=== PATIENT | female | born 1995 | race Caucasian/White ===

== ENCOUNTER 2019-10-15 10:52 | Outpatient (CLI) | payer BC, SELFPAY ==
--- NOTE | ~2019-10-15 | US_ITS ---
EXAMINATION: US OB <=14 wk fetus w TV DATE: 10/15/2019 11:35 INDICATION: First trimester dating TECHNIQUE: Real-time pelvic transabdominal and transvaginal ultrasound was performed. COMPARISON: None. FINDINGS: The uterus measures 9.0 x 5.5 x 5.8 cm. There is an intrauterine gestational sac. A yolk s ac is identified. The pole was not identified. The mean gestational sac diameter is 1.4 cm , wh ich correlates with an estimated gestational age of 61 weeks and 0 day(s) (+/-) 4 day(s). The right ovary measures 2.9 x 2.4 x 2.3 cm. The left ovary measures 2.8 x 2.4 x 1.8 cm. There is tra ce free fluid in the pelvis. IMPRESSION: 1. Intrauterine gestational sac and yolk sac without pole identified which may be due to early . Estimated gestational age is 6 weeks and 1 day(s) (+/-) 4 day(s) and an estimated delivery date of 06/08/2020 based on mean sac diameter. Reviewed, dictated and finalized at location A. IMPRESSION: 1. Intrauterine gestational sac and yolk sac without pole identified whic h may be due to early . Estimated gestational age is 6 weeks and 1 day (s) (+/-) 4 day(s) and an estimated delivery date of 06/08/2020 based on mean sa c diameter.
== END 2019-10-15 10:53 | disposition home or self-care (01) ==
PROVIDERS: Visit Provider Obstetrics & Gynecology Gynecology
DX: O26.21 Pregnancy care for patient with recurrent pregnancy loss, first trimester (principal); Z36.87 Encounter for antenatal screening for uncertain dates
CPT/HCPCS: 76801; 76817

== ENCOUNTER 2019-10-23 12:50 | Outpatient (CLI) | payer BC, SELFPAY ==
--- NOTE | ~2019-10-23 | US_ITS ---
EXAMINATION: US OB <= 14 weeks fetus DATE: 10/23/2019 13:31 INDICATION: Assess viability during first trimester . TECHNIQUE: Real-time pelvic ultrasound utilizing both a transvaginal and transabdominal probe was pe rformed. The interpreting radiologist was not present for the study. COMPARISON: None. FINDINGS: The uterus measures 10.6 x 6.6 x 5.6 cm. There is an intrauterine gestational sac. A yolk sac and fe taras pole are identified. The crown rump length measures 1.1 cm, which correlates with an estimated ge stational age of 7 weeks and 2 days. heart motion is identified measuring 142 beats per minute (bpm) by M-mode Doppler. 2.5 x 0.4 x 0.6 cm subchorionic hematoma along the fundal side of the gestat ional sac. The ovaries are not visualized. There is no free fluid in the pelvis. IMPRESSION: 1. Single living fetus with heart rate of 142 bpm. 2. Gestational age by ultrasound of 7 weeks 2 day(s) +/- 5 day(s) with ultrasound estimated date of delivery ([facility]IGUELIT[facility]) of 06/08/2020. 3. Small subchorionic hematoma. Reviewed, dictated and finalized at location A. IMPRESSION: 1. Single living fetus with heart rate of 142 bpm. 2. Gestational age by ultrasound of 7 weeks 2 day(s) +/- 5 day(s) with ultraso und estimated date of delivery ([facility]) of 06/08/2020. 3. Small subchorionic hematoma.
== END 2019-10-23 12:51 | disposition home or self-care (01) ==
PROVIDERS: Visit Provider Obstetrics & Gynecology Gynecology
DX: O36.80X0 Pregnancy with inconclusive fetal viability, not applicable or unspecified (principal); Z3A.01 Less than 8 weeks gestation of pregnancy; O36.8911 Maternal care for other specified fetal problems, first trimester, fetus 1
CPT/HCPCS: 76801

== ENCOUNTER 2019-11-07 09:58 | Outpatient (CLI) | payer BC, SELFPAY ==
--- NOTE | ~2019-11-07 | US_ITS ---
EXAMINATION: US OB <= 14 weeks fetus DATE: 11/07/2019 10:38 INDICATION: Subchorionic hematoma. TECHNIQUE: Real-time pelvic ultrasound utilizing both a transvaginal and transabdominal probe was pe rformed. The interpreting radiologist was not present for the study. COMPARISON: None. FINDINGS: The uterus measures 12.8 x 7.8 x 6.2 cm. There is an intrauterine gestational sac. A yolk sac and fe taras pole are identified. The crown rump length measures 2.7 cm, which is concordant with previously e stimated gestational age of 9 weeks and 3 days. heart motion is identified measuring 157 beats per minute (bpm) by M-mode Doppler.Decrease in size of a now tiny 9 x 5 x 2 mm subchorionic hematoma along the right fundal side of the gestational sac. The ovaries are not visualized. There is no free fluid in the pelvis. IMPRESSION: 1. Single living fetus with heart rate of 157 bpm. 2. [place]-rump length of 2.7 cm concordant with previously estimated age by ultrasound of 9 weeks 3 da ys with ultrasound estimated date of delivery ([facility]) of 06/08/2020. 3. Decrease in size of a now tiny 9 x 5 x 3 mm subchorionic hematoma. Reviewed, dictated and finalized at location A. IMPRESSION: 1. Single living fetus with heart rate of 157 bpm. 2. [place]-rump length of 2.7 cm concordant with previously estimated age by ultr asound of 9 weeks 3 days with ultrasound estimated date of delivery ([facility]IGUELITO) of . 3. Decrease in size of a now tiny 9 x 5 x 3 mm subchorionic hematoma.
== END 2019-11-07 09:59 | disposition home or self-care (01) ==
PROVIDERS: Visit Provider Obstetrics & Gynecology Gynecology
DX: O36.8910 Maternal care for other specified fetal problems, first trimester, not applicable or unspecified (principal); Z3A.09 9 weeks gestation of pregnancy
CPT/HCPCS: 76801

== ENCOUNTER → 2020-01-22 11:10 | Outpatient (CLI) | payer BC, SELFPAY ==
--- NOTE | ~2020-01-22 | US_ITS ---
US OB >= 14 weeks Fetus DATE: 01/22/2020 12:28 INDICATION: anatomy assessment TECHNIQUE: Real-time and color flow imaging and Doppler analysis. COMPARISON: 11/07/2019 obstetrical ultrasound FINDINGS: Live romero intrauterine gestation, fetus in vertex presentation, longitudinal lie. The placenta is posterior. The lower placental margin is 5.4 cm above the cervix. Subjectively normal amount of amniotic fluid. No evidence of cerebral ventriculomegaly. cerebellum and nuchal fold appear normal. The f etal spine appears intact on transverse and longitudinal views. The diaphragm is intact. 4 bar dominick heart. The kidneys are unremarkable, without hydronephrosis. Fluid is demonstrated in the stomach and urinary bladder. Three-vessel umbilical cord with normal insertion at fe taras abdominal wall. heart rate of 148 bpm. Biparietal diameter 4.80 cm; 20 weeks 4 days estimated gestational age Head circumference 18.0 cm; 20 weeks 3 days Abdominal circumference 15.39 cm; 20 weeks 4 days Femur length 3.21 cm; 20 weeks Composite age by Hadlock formula is 20 weeks 3 days +/- 1 week 3 days; MIGUELIT[facility] by ultrasound is 06/07/2020 compared to 06/08/2020 by LMP. Estimated weight is 347 +/- 52 g. HC/AC 1.17, within normal range of 1.07, 101.25 Femur length/head circumference 17.82, within normal range of 16.41-20.01 IMPRESSION: Normal anatomy screen Composite age by Hadlock formula is 20 weeks 3 days +/- 1 week 3 days; M[facility]EL[place] by ultrasound is 06/07/2020 compared to 06/08/2020 by LMP. Estimated weight is 347 +/- 52 g. Reviewed, dictated and finalized at Location A. Reviewed, dictated and finalized at location B. IMPRESSION: Normal anatomy screen Composite age by Hadlock formula is 20 weeks 3 days +/- 1 week 3 days; MIG[facility]ELITO by u ltrasound is 06/07/2020 compared to 06/08/2020 by LMP. Estimated weight is 347 +/- 52 g.
== END ==
PROVIDERS: Visit Provider Obstetrics & Gynecology Gynecology
DX: Z36.9 Encounter for antenatal screening, unspecified (principal); Z3A.20 20 weeks gestation of pregnancy
CPT/HCPCS: 76805

== ENCOUNTER → 2022-02-21 15:26 | Outpatient (CLI) | payer OTHER, SELFPAY ==
--- NOTE | ~2022-02-21 | US_ITS ---
EXAMINATION: US OB follow up DATE: 02/21/2022 16:03 INDICATION: growth assessment during third trimester TECHNIQUE: Real-time ultrasound of the pelvis was performed. The interpreting radiologist was not pre sent for the study. COMPARISON: None. FINDINGS: There is a single living fetus in vertex presentation. The placenta is posterior. The cervi modesta length is 3.4 cm. cardiac activity and movement are noted. heart rate is 147 be ats per minute (bpm). The amniotic fluid index is 15.1 cm which is normal (normal range: 8.1 cm to 24 .8 cm). The following biometric data were obtained: Biparietal diameter (BPD): 8.4 cm; head circumference (HC): 31.7 cm; abdominal circumference (AC): 30 .2 cm; femur length (FL): 6.4 cm. These measurements are concordant. Estimated weight is 2332 g +/- 349 g, which correlates with the 87th percentile when 04/15/2022 is used as estimated date of delivery. As single measurements, these parameters are each equal to the following estimated gestational ages w ith ranges of +/- 2 standard deviations: BPD: 33 weeks 5 days ( 30 weeks 4 days - 36 weeks 5 days). HC: 35 weeks 5 days ( 32 weeks 5 days - 38 weeks 5 days). AC: 34 weeks 1 days ( 31 weeks 2 days - 37 weeks 1 days). FL: 33 weeks 2 days ( 30 weeks 2 days - 36 weeks 1 days). estimated gestational age based solely on measurements from this exam is 34 weeks 2 days +/- 2 weeks 3 days. IMPRESSION: 1. Single living fetus in vertex presentation. 2. Normal amniotic fluid index. 3. Estimated weight is 2332 g +/- 349 g, which correlates with the 87th percentile when 022 is used as estimated date of delivery. Reviewed, dictated and finalized at location B. IMPRESSION: 1. Single living fetus in vertex presentation. 2. Normal amniotic fluid index. 3. Estimated weight is 2332 g +/- 349 g, which correlates with the 87th p ercentile when 04/15/2022 is used as estimated date of delivery.
== END ==
DX: Z34.83 Encounter for supervision of other normal pregnancy, third trimester (principal); Z3A.34 34 weeks gestation of pregnancy
CPT/HCPCS: 76816

== ENCOUNTER → 2022-03-31 14:59 | Outpatient (CLI) | payer OTHER, SELFPAY ==
--- NOTE | ~2022-03-31 | US_ITS ---
EXAMINATION: US OB follow up DATE: 03/31/2022 15:37 INDICATION: growth assessment during third trimester TECHNIQUE: Real-time ultrasound of the pelvis was performed. The interpreting radiologist was not pre sent for the study. COMPARISON: 02/21/2022 FINDINGS: There is a single living fetus in vertex presentation. The placenta is posterior and outer range. cardiac activity and movement are noted. heart rate is 139 beats per minute (bpm). The amniotic fluid index is 16.9 cm which is normal (normal range: 7.5 cm to 24.4 cm). The following biometric data were obtained: Biparietal diameter (BPD): 9.5 cm; head circumference (HC): 35.5 cm; abdominal circumference (AC): 34 .8 cm; femur length (FL): 7.5 cm. These measurements are concordant. Estimated weight is 3642 g +/- 546 g, which correlates with the 86th percentile when 04/15/2022 is used as estimated date of delivery. As single measurements, these parameters are each equal to the following estimated gestational ages w ith ranges of +/- 2 standard deviations: BPD: 38 weeks 5 days ( 35 weeks 3 days - 41 weeks 6 days). HC: 41 weeks 3 days ( 38 weeks 5 days - 44 weeks 1 days). AC: 38 weeks 5 days ( 35 weeks 5 days - 41 weeks 6 days). FL: 38 weeks 2 days ( 35 weeks 1 days - 41 weeks 3 days). estimated gestational age based solely on measurements from this exam is 39 weeks 2 days +/- 2 weeks 5 days. IMPRESSION: 1. Single living fetus in vertex presentation. 2. Estimated weight is 3642 g +/- 546 g, which correlates with the 86th percentile when 022 is used as estimated date of delivery. 3. Normal amniotic fluid index. Reviewed, dictated and finalized at location A. IMPRESSION: 1. Single living fetus in vertex presentation. 2. Estimated weight is 3642 g +/- 546 g, which correlates with the 86th p ercentile when 04/15/2022 is used as estimated date of delivery. 3. Normal amniotic fluid index.
== END ==
DX: Z34.83 Encounter for supervision of other normal pregnancy, third trimester (principal)
CPT/HCPCS: 76816

== ENCOUNTER → 2023-04-23 10:15 | Outpatient (CLI) | payer OTHER, SELFPAY ==
--- NOTE | ~2023-04-23 | US_ITS ---
EXAMINATION: US OB /maternal detail DATE: 04/23/2023 10:49 INDICATION: survey TECHNIQUE: Multiple obstetric sonographic images performed. FINDINGS: No prior studies for comparison. There is a single living fetus in variable presentation. The placenta is posterior without placenta previa. Placental margin 7 cm to the cervix. Cervical length 5.1 cm. Amniotic fluid volume is subject ively normal. cardiac activity and movement is noted with a heart rate of 150 beats per minute. The following anatomy was identified as normal: 4 chamber heart 3 vessel cord cord insertion kidneys urinary bladder stomach spine diaphragm ventricles cisterna magna cerebellum The following biometric data were obtained: BPD: 42mm corresponds to gestational age 18 weeks 4 days. Head circumference: 160 mm corresponds to gestational age 18 weeks 6 days. Abdominal circumference: 140 mm corresponds to gestational age 19 weeks 3 days. Femur length: 29 mm corresponds to gestational age 18 weeks 6 axial days. Head circumference to abdominal circumference ratio: 1.14 (normal range for expected gestational age is 1.09-1.26). Estimated weight: 272 grams +/- 41 grams using Hadlock method. IMPRESSION: 1: Single living intrauterine with an estimated gestational age of 19weeks 0days by initial ultrasound measurements, with an EDC of 09/17/2023 in variable presentation. 2. Normal survey. Reviewed, dictated and finalized at location L. IMPRESSION: 1: Single living intrauterine with an estimated gestational age of 19 weeks 0days by initial ultrasound measurements, with an EDC of 09/17/2023 in mayur iable presentation. 2. Normal survey.
== END ==
DX: Z34.82 Encounter for supervision of other normal pregnancy, second trimester (principal); Z3A.18 18 weeks gestation of pregnancy
CPT/HCPCS: 76805

== ENCOUNTER → 2023-08-22 11:57 | Outpatient (CLI) | payer OTHER, SELFPAY ==
--- NOTE | ~2023-08-22 | US_ITS ---
EXAMINATION: US OB follow up DATE: 08/22/2023 12:34 INDICATION: Encounter for supervision of normal third trimester TECHNIQUE: Real-time ultrasound of the pelvis was performed. The interpreting radiologist was not pre sent for the study. COMPARISON: None. FINDINGS: There is a single living fetus in vertex presentation. The placenta is posterior. car diac activity and movement are noted. The measured cervical length is 5.1 cm. heart rate is 138 beats per minute (bpm). The amniotic fluid index is 10.5 cm which is normal (normal range: 7.7 cm to 24.9 cm). The following biometric data were obtained: Biparietal diameter (BPD): 8.7 cm; head circumference (HC): 31.7 cm; abdominal circumference (AC): 30 .3 cm; femur length (FL): 6.6 cm. These measurements are concordant. Estimated weight is 2427 g +/- 364 g, which correlates with the 11th percentile when 09/17/2023 is used as estimated date of delivery. As single measurements, these parameters are each equal to the following estimated gestational ages w ith ranges of +/- 2 standard deviations: BPD: 35 weeks 0 days ( 31 weeks 6 days - 38 weeks 0 days). HC: 35 weeks 4 days ( 32 weeks 4 days - 38 weeks 4 days). AC: 34 weeks 2 days ( 31 weeks 2 days - 37 weeks 1 days). FL: 34 weeks 1 days ( 31 weeks 1 days - 37 weeks 1 days). estimated gestational age based solely on measurements from this exam is 34 weeks 5 days +/- 2 weeks 3 days. IMPRESSION: 1. Single living fetus in vertex presentation. 2. Normal amniotic fluid index. 3. Estimated weight is 2427 g +/- 364 g, which correlates with the 11th percentile when 09/17/19 24 is used as estimated date of delivery. Reviewed, dictated and finalized at location B. 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 Single living fetus in vertex presentation. 2. Normal amniotic fluid index. 3. Estimated weight is 2427 g +/- 364 g, which correlates with the 11th p ercentile when 09/17/2023 is used as estimated date of delivery.
== END ==
DX: Z34.93 Encounter for supervision of normal pregnancy, unspecified, third trimester (principal); Z3A.34 34 weeks gestation of pregnancy
CPT/HCPCS: 76816

== ENCOUNTER 2024-12-18 14:57 | Outpatient (CLI) | payer SELFPAY ==
--- NOTE | ~2024-12-18 | US_ITS ---
EXAMINATION: US OB /maternal detail DATE: 12/18/2024 23:54 CDT INDICATION: Anatomy scan TECHNIQUE: Real-time transabdominal obstetric ultrasound. FINDINGS: Left menstrual period is given as 07/28/2024 There is a single intrauterine gestation in vertex presentation. The placenta is posterior. The tip of the placenta measures 8 cm on the internal cervical os. The cervix measures 4.6 cm in length. cardiac activity and movement is noted with a heart rate of 149 beats per minute. Anatomic parameters are as follows A single view of a portion of the bladder is visualized, and is grossly unremarkable. A three-vessel cord is present. Cord insertion is demonstrated to be on the midline. Bilateral kidneys are present without hydronephrosis. The posterior lateral margin of the diaphragm is continuous. The anterior margin of the diaphragm is poorly visualized (as it appears to exclude the stoma ch) for which follow-up examination is needed. The cervical, thoracic and lumbar spines are covered in their entirety. choroid plexi are visualized, and unremarkable. Lateral ventricles are visualized measuring 6.6 and 6.4 mm, respectively. The falx is visualized. The cerebellum is visualized measuring 20.6 mm, and is sonographically unremarkable. The cisterna magna measures 4.4 mm in anterior to posterior dimension (normal measurement is 2 to 10 mm). The nuchal fold measures 4 mm (greater than 6 mm is considered abnormal). Cine of the four-chamber heart is visualized and is anatomic. Cine of both the right and left ventricular outflow tracts are visualized and are unremarkable. Views of the arms, hands, legs and feet were performed and appear grossly unremarkable. The upper lip and nose are visualized confirming their continuity on cine evaluation. The amniotic fluid appears complex for which short-term follow-up is recommended. The following biometric data were obtained: Biparietal diameter (BPD): 4.6 cm; head circumference (HC): 17.6 cm; abdominal circumference (AC): 16 cm; femur length (FL): 3.3 cm. These measurements are concordant. Estimated weight is 366.34 g +/- 55 g, which correlates with the 94th percentile when 05/04/2025 is used as estimated date of delivery. As single measurements, these parameters are each equal to the following estimated gestational ages: BPD: 20 weeks 0 days. HC: 20 weeks 1 day. AC: 21 weeks 0 days. FL: 20 weeks 2 days. estimated gestational age based solely on measurements from this exam is 20 weeks 3 days +/- 1 week 3 days. IMPRESSION: Single intrauterine gestation with an approximate gestational age of 20 weeks and 3 days. Estimated d ue date by ultrasound is 05/04/2025. The anterior margin of the diaphragm is only minimally visualized for follow-up examination is recommended. The amniotic fluid appears complex for which short-term follow-up is recommended. Remainder of the anatomy scan is unremarkable and within normal limits. Reviewed, dictated and finalized at location A. IMPRESSION: Single intrauterine gestation with an approximate gestational age of 20 weeks a nd 3 days. Estimated due date by ultrasound is 05/04/2025. The anterior margin of the diaphragm is only minimally visualized for fol low-up examination is recommended. The amniotic fluid appears complex for which short-term follow-up is recommende d. Remainder of the anatomy scan is unremarkable and within normal limits.
== END 2024-12-18 14:58 | disposition home or self-care (01) ==
DX: Z34.82 Encounter for supervision of other normal pregnancy, second trimester (principal); Z3A.20 20 weeks gestation of pregnancy
CPT/HCPCS: 76805